=== PATIENT | female | born 1970 | race Caucasian/White ===

== ENCOUNTER 2022-05-08 18:42 | Emergency (ER) | payer OTHER ==
[2022-05-08 18:48] VITALS: BP 125/54; PULSE 82; TEMP 98.2; BMI 35.4
[2022-05-08] MEDS ORDERED: diazePAM 5 MG TABLET PO ONE (20:02)
[2022-05-08] MEDS ORDERED: KETOROLAC TROMETHAMINE 30 MG/1 ML VIAL IM ONE (20:02)
[2022-05-08] MEDS ORDERED: KETOROLAC TROMETHAMINE 30 MG/1 ML VIAL ONE (20:11)
[2022-05-08] MEDS ORDERED: diazePAM 5 MG TABLET ONE (20:11)
[2022-05-08] MEDS ORDERED: LIDOCAINE 5% TOPICAL PATCH TP ONE (20:15)
[2022-05-08] MEDS ORDERED: LIDOCAINE PATCH REMOVAL MC SCH (22:00)
== END 2022-05-08 20:35 | disposition home or self-care (01) ==
LOC: JERFT 18:42
PROC: 3E0233Z Introduction of Anti-inflammatory into Muscle, Percutaneous Approach (ICD-10-PCS; principal; 2022-05-08)
DX: M67.90 Unspecified disorder of synovium and tendon, unspecified site (principal)
CPT/HCPCS: 73030-TC-LT-FY; 96372; 99284-25